=== PATIENT | female | born 1975 | race Caucasian/White ===

== ENCOUNTER 2017-05-26 11:11 | Emergency (ER) | payer OTHER ==
[2017-05-26] MEDS ORDERED: Albuterol 2.5 MG/3 ML NEB.SOL* (0.083%) INH ONE (11:23)
[2017-05-26 12:24] VITALS: BP 139/92
--- NOTE | 2017-05-26 20:07 | UC ---
Anamaria Bass Emily, scribed for Shivani Hogan DO on 05/26/17 at 1154 . Shortness of Breath HPI - HPI Summary HPI Summary: This patient is a 42 year old F presenting to urgent care with a chief complaint of SOB that began 3 weeks ago. The patient rates the pain 4/10 in severity. Symptoms aggravated by nothing. Symptoms alleviated by nothing. Patient reports headache, increased tiredness, dizziness, cough, racing heart, nasal discharge, congestion, and myalgia. Patient denies fever, chills, sore throat, ear ache, nausea, CP, and abd pain. Pt denies recent tick bites. Medications reviewed this visit. - History of Current Complaint Chief Complaint: UCRespiratory Stated Complaint: SOB Time Seen by Provider: 05/26/17 11:23 Hx Obtained From: Patient Hx Last Menstrual Period: mirena IUD Onset/Duration: Sudden Onset, Lasting Weeks, Still Present Current Severity: Moderate Aggrevating Factors: Nothing Alleviating Factors: Nothing Associated Signs & Symptoms: Positive: Other - Positive headache, increased tiredness, dizziness, cough, racing heart, nasal discharge, congestion, and myalgia. Negative fever, chills, nausea, CP, and abd pain - Allergy/Home Medications Allergies/Adverse Reactions: Allergies Allergy/AdvReac Type Severity Reaction Status Date / Time Nickel Allergy Rash And Verified 03/20/16 10:17 Itching Home Medications: Home Medications Glucosamine Hydrochloride [Glucosamine] 05/26/17 [History] PMH/Surg Hx/FS Hx/Imm Hx Previously Healthy: No Other Endocrine History: Negative diabetes Other Cardiovascular History: Negative HTN Other Respiratory History: Negative COPD Other GI/ History: Ovarian cyst - Surgical History Surgical History: Yes Surgery Procedure, Year, and Place: 2003 Cyst on Ovary Removed - Family History Known Family History: Positive: Hypertension, Diabetes - Social History Occupation: Employed Full-time Lives: Alone Alcohol Use: Weekly Substance Use Type: None Smoking Status (MU): Former Smoker - Immunization History Most Recent Influenza Vaccination: 2012 Most Recent Tetanus Shot: UNKNOWN Most Recent Pneumonia Vaccination: NEVER Review of Systems Constitutional: Fatigue ENT: Nasal Discharge, Sinus Congestion, Other - Negative sore throat and ear ache Respiratory: Shortness Of Breath, Cough Cardiovascular: Other - Positive "racing heart". Negative CP Gastrointestinal: Other - Negative abd pain and nausea Musculoskeletal: Myalgia Neurological: Headache All Other Systems Reviewed And Are Negative: Yes Physical Exam Triage Information Reviewed: Yes Appearance: Well-Appearing, No Pain Distress, Well-Nourished Vital Signs: Initial Vital Signs Temp 98.2 F 05/26/17 12:23 Pulse 70 05/26/17 12:23 Resp 18 05/26/17 12:23 BP 139/92 05/26/17 12:23 Pulse Ox 100 05/26/17 12:23 Vital Signs Reviewed: Yes Eyes: Positive: Conjunctiva Clear. Negative: Discharge ENT: Positive: Hearing grossly normal, Nasal congestion, Nasal drainage, TMs normal. Negative: Tonsillar swelling, Tonsillar exudate, Muffled/hoarse voice Neck exam: Normal Neck: Positive: Supple Respiratory: Positive: Lungs clear, No respiratory distress, Other: - Prolonged expiration at the bases. Rare, scattered wheezes. Cardiovascular: Positive: RRR, No Murmur Musculoskeletal Exam: Normal Neurological: Positive: Alert, Muscle Tone Normal Psychological Exam: Normal Psychological: Positive: Age Appropriate Behavior Skin Exam: Normal - Warm. Dry. Normal Color Diagnostics - EKG Cardiac Rate: NL - EKG taken at 1214 reveals nml sinus rhythm at [address] changes. Shortness of Breath Dx - Course Course Of Treatment: This patient is a 42 year old F presenting to urgent care with a chief complaint of SOB that began 3 weeks ago. The patient rates the pain 4/10 in severity. Symptoms aggravated by nothing. Symptoms alleviated by nothing. Patient reports headache, increased tiredness, dizziness, cough, racing heart, nasal discharge, congestion, and myalgia. Patient denies fever, chills, sore throat, ear ache, nausea, CP, and abd pain. Pt denies recent tick bites. Medications reviewed this visit. Physical Exam Findings. Prolonged expiration at the bases. Rare, scattered wheezes. Nasal congestion and drainage. Medical Decision Making. EKG taken at 1214 reveals nml sinus rhythm at [address] changes. In the urgent care course the patient was given Albuterol. Patient will be discharged with prescription for Augmentin and Albuterol with follow up from PCP. The patient is agreeable with this plan. - Differential Dx/Diagnosis Provider Diagnoses: Sinusitis. Bronchospasm. Elevated blood pressure without diagnosis of hypertension. Discharge - Discharge Plan Condition: Stable Disposition: HOME Prescriptions: Albuterol HFA INHALER* [Ventolin HFA Inhaler*] 2 puff INH Q4H PRN #1 mdi PRN Reason: Sob/Wheezing Amoxicillin/Clavulanate TAB* [Augmentin TAB 875*] 875 mg PO BID #20 tab Patient Education Materials: Sinusitis (ED), Bronchospasm (ED) Referrals: Sundar Mtz MD [Primary Care Provider] - (follow up in 1-2 weeks) Additional Instructions: WE DID AN EKG HERE BECASUE YOU REPORTED A SENSE OF YOUR HEART RACING. THE EKG WAS COMPLETELY NORMAL. TRY USING THE NETTI POT IN THE MORNINGS DISCUSSED. YOU MUST ALWAYS USE CLEAN WATER. REMEMBER, POSTURE IS AN IMPORTANT FACTOR IN SINUS DRAINAGE. MOVE YOUR NECK, BREATHE. INHALED BRONCHODILATORS: You have received a prescription for an inhaled bronchodilator -- a medication which stimulates the airways in the lung to dilate. This improves the flow of air in asthma, bronchitis, and emphysema. These medicines have some similarity to adrenaline, and can cause similar side effects: shakiness, racing heart, and a sense of nervousness. These side effects decrease with time. Contact your doctor if these side effects are severe. Do not over-use the medicine. Too-frequent use of the inhaler may make it ineffective. Call your doctor if the inhaler is not controlling your symptoms at the prescribed doses. AFTER 2-3 WEEKS OF SYMPTOMS, IT IS OK TO TRY ANTIBIOTICS TO TREAT YOUR SINUS INFECTION. STILL, WE ENCOURAGE YOU TO WAIT ANOTHER 3 DAYS TO SEE IF YOU WILL IMPROVE WITHOUT THEM USING THE VARIOUS STRATEGIES DISCUSSED. IF YOUR SYMPTOMS WORSEN OR PERSIST FOR OVER THE NEXT 3 DAYS, YOU CAN TAKE THE FOLLOWING MEDICATION: AUGMENTIN: Augmentin is a mixture of amoxicillin and clavulanate. Amoxicillin is a member of the penicillin family. It covers the germs likely to cause ear, bronchial, and urinary infections better than plain penicillin. The addition of clavulanate allows it to cover staph infections of the skin, as well as resistant cases of ear and sinus infections. Your physician has chosen Augmentin for you because of the special nature of your situation. Augmentin is best taken with meals. Nausea after taking the medication is rare, but can occur. Diarrhea can occur, particularly in small children. Vaginal yeast infections, and oral thrush in infants are also common. Contact your physician if these problems occur. Allergy to penicillins is common. If you have had an allergic reaction to any drug of the penicillin family, you should never take any other penicillin. Notify your doctor at once if you develop hives, shortness of breath, swelling, or faintness. ANYTIME YOU TAKE AN ANTIBIOTIC, IT IS IMPORTANT TO REPLENISH THE BODY'S SUPPLY OF "GOOD BACTERIA." YOU CAN GET GOOD BACTERIA FROM HIGH QUALITY CULTURED FOODS SUCH LOCAL YOGURT, SOUR KRAUT, BATOOL MARIANO, NATURALLY FERMENTED PICKLES AND PROBIOTIC DRINKS. YOU CAN ALSO GET GOOD BACTERIA FROM A PROBIOTIC SUPPLEMENT. Your blood pressure was elevated at this visit. That does not mean you have hypertension, it is probably due to your current condition. Please follow up with your primary care provider. The documentation as recorded by the Anamaria escudero Emily accurately reflects the service I personally performed and the decisions made by me, Shivani Hogan DO.
== END 2017-05-26 12:55 | disposition home or self-care (01) ==
LOC: UCEAST 11:11
DX: G44.209 Tension-type headache, unspecified, not intractable (principal); I10 Essential (primary) hypertension
CPT/HCPCS: 93005; 99212; G0463